=== PATIENT | female | born 1955 | race Caucasian/White ===

== ENCOUNTER 2023-11-17 10:43 | Day surgery (SDC) | payer MEDICARE, OTHER ==
[2023-11-17] MEDS ORDERED: BUPIVACAINE 0.5% VIAL IJ ONE (10:44)
[2023-11-17] MEDS ORDERED: DIPRIVAN 200 MG/20 ML IV ONE (13:13)
[2023-11-17] MEDS ORDERED: Lactated Ringers 1,000 ML IV ONE (13:59)
--- NOTE | 2023-11-17 14:45 | XRAY ---
Indication: Left knee genicular nerve block. Intraoperative fluoroscopy provided for 18 seconds. 2 digital spot images left knee submitted for interpretation demonstrates anterior needle tips projecting medial/lateral supracondylar and medial tibial plateau. Correlate with intraoperative findings/report.
--- NOTE | 2023-11-17 14:47 | XRAY ---
18 seconds of fluoroscopy was used in surgery for a left genicular nerve block.
== END 2023-11-17 13:48 | disposition home or self-care (01) ==
LOC: SDC-PAIN 10:43
PROVIDERS: ATTEND Psychiatry & Neurology Pain Medicine
DX: M17.12 Unilateral primary osteoarthritis, left knee (principal)
CPT/HCPCS: 64454; 73560; 77002; J2704

== ENCOUNTER 2023-12-15 14:12 | Day surgery (SDC) | payer MEDICARE ==
[2023-12-15] MEDS ORDERED: Depo-Medrol 40 MG/ML IM ONE ×2 (14:13)
[2023-12-15] MEDS ORDERED: LIDOCAINE HCL 1% 50 MG/5 ML VL PF IJ ONE ×2 (14:13)
[2023-12-15] MEDS ORDERED: BUPIVACAINE 0.5% VIAL IJ ONE ×2 (14:13)
[2023-12-15] MEDS ORDERED: DIPRIVAN 200 MG/20 ML IV ONE (15:48)
[2023-12-15] MEDS ORDERED: Lactated Ringers 1,000 ML IV ONE (16:31)
--- NOTE | 2023-12-15 17:01 | XRAY ---
Indication: Left knee genicular nerve ablation. Intraoperative fluoroscopy provided for 29 seconds. 3 digital spot image left knee submitted for interpretation demonstrates anterior needle tips projecting medial/lateral supracondylar and medial tibial plateau. Correlate with intraoperative findings/report.
--- NOTE | 2023-12-15 17:19 | XRAY ---
29 seconds of fluoroscopy was used in surgery for a left genicular nerve ablation.
== END 2023-12-15 16:24 | disposition home or self-care (01) ==
LOC: SDC-PAIN 14:12
PROVIDERS: ATTEND Psychiatry & Neurology Pain Medicine
DX: M17.12 Unilateral primary osteoarthritis, left knee (principal)
CPT/HCPCS: 64624; 73560; 77002; J1030; J2001; J2704

== ENCOUNTER 2024-08-16 10:44 | Day surgery (SDC) | payer MEDICARE ==
[2024-08-16] MEDS ORDERED: BUPIVACAINE 0.5% VIAL IJ ONE (10:45)
[2024-08-16] MEDS ORDERED: Depo-Medrol 40 MG/ML IM ONE (10:45)
[2024-08-16] MEDS ORDERED: DIPRIVAN 200 MG/20 ML IV ONE (12:44)
--- NOTE | 2024-08-16 14:39 | XRAY ---
Indication: Right shoulder and subacromial bursa injection. Intraoperative fluoroscopy provided for 22 seconds. 2 digital spot image submitted for interpretation demonstrates needle tip projecting over right glenohumeral joint superiorly. Second needle tip subacromial. Small amount of contrast injected for needle tip placement. Correlate with operative findings/report.
--- NOTE | 2024-08-16 17:10 | XRAY ---
22 seconds of fluoroscopy was used in surgery for a right intra-articular shoulder and subacromial bursa injection.
== END 2024-08-16 13:12 | disposition home or self-care (01) ==
LOC: SDC-PAIN 10:44
PROVIDERS: ATTEND Psychiatry & Neurology Pain Medicine
DX: M19.011 Primary osteoarthritis, right shoulder (principal); M75.51 Bursitis of right shoulder
CPT/HCPCS: 20610; 73030; 77002; J2704; Q9966

== ENCOUNTER 2025-07-25 13:24 | Day surgery (SDC) | payer MEDICARE ==
[2025-07-25] MEDS ORDERED: methylPREDNISolone acetate IM ONE (13:25)
[2025-07-25] MEDS ORDERED: LIDOCAINE HCL 2% 100 MG/5 ML IJ ONE (13:25)
[2025-07-25] MEDS ORDERED: propofoL IV ONE (15:01)
[2025-07-25] MEDS ORDERED: Lactated Ringers 1,000 ML IV ONE (15:54)
--- NOTE | 2025-07-25 19:59 | XRAY ---
Indication: Bilateral L4-S1 MBB. Intraoperative fluoroscopy provided for 12 seconds. Single digital spot image submitted for interpretation demonstrates posterior needle tips projecting over expected left and right L4-S1 nerve roots. Correlate with intraoperative findings/report.
--- NOTE | 2025-07-26 09:18 | XRAY ---
12 seconds of fluoroscopy was used in surgery for a bilateral L4-S1 MBB.
== END 2025-07-25 15:40 | disposition home or self-care (01) ==
LOC: SDC-PAIN 13:24
PROVIDERS: ATTEND Psychiatry & Neurology Pain Medicine
DX: M47.817 Spondylosis without myelopathy or radiculopathy, lumbosacral region (principal)

== ENCOUNTER 2025-08-09 12:24 | Day surgery (SDC) | payer MEDICARE ==
[2025-08-09] MEDS ORDERED: methylPREDNISolone acetate IM ONE (12:25)
[2025-08-09] MEDS ORDERED: BUPIVACAINE 0.5% VIAL IJ ONE (12:25)
[2025-08-09] MEDS ORDERED: propofoL IV ONE (13:54)
[2025-08-09] MEDS ORDERED: Lactated Ringers 1,000 ML IV ONE (14:34)
--- NOTE | 2025-08-09 16:33 | XRAY ---
Indication: Bilateral L4-S1 MBB. Intraoperative fluoroscopy provided for 13 seconds. Single digital spot image submitted for interpretation demonstrates posterior needle tips projecting over expected left and right L4-S1 nerve roots. Correlate with intraoperative findings/report.
--- NOTE | 2025-08-09 17:00 | XRAY ---
13 seconds of fluoroscopy was used in surgery for a bilateral L4-S1 MBB.
== END 2025-08-09 14:24 | disposition home or self-care (01) ==
LOC: SDC-PAIN 12:24
PROVIDERS: ATTEND Psychiatry & Neurology Pain Medicine
DX: M47.817 Spondylosis without myelopathy or radiculopathy, lumbosacral region (principal)

== ENCOUNTER 2025-09-06 10:17 | Day surgery (SDC) | payer MEDICARE ==
[2025-09-06] MEDS ORDERED: BUPIVACAINE 0.5% VIAL IJ ONE (10:18)
[2025-09-06] MEDS ORDERED: LIDOCAINE HCL 1% 50 MG/5 ML VL IJ ONE (10:18)
[2025-09-06] MEDS ORDERED: methylPREDNISolone acetate IM ONE (10:18)
[2025-09-06] MEDS ORDERED: propofoL IV ONE (12:22)
[2025-09-06] MEDS ORDERED: Lactated Ringers 1,000 ML IV ONE (12:48)
--- NOTE | 2025-09-06 13:52 | XRAY ---
Indication: Left L4-S1 RFA. Intraoperative fluoroscopy provided for 13 seconds. 4 digital spot image submitted for interpretation demonstrates posterior needle tips projecting over expected left L4-S1 nerve roots. Correlate with intraoperative findings/report.
--- NOTE | 2025-09-06 14:06 | XRAY ---
13 seconds of fluoroscopy was used in surgery for a left L4-S1 RFA.
== END 2025-09-06 13:02 | disposition home or self-care (01) ==
LOC: SDC-PAIN 10:17
PROVIDERS: ATTEND Psychiatry & Neurology Pain Medicine
DX: M47.817 Spondylosis without myelopathy or radiculopathy, lumbosacral region (principal)